=== PATIENT | female | born 1960 | race Caucasian/White ===

== ENCOUNTER 2019-07-07 09:10 | Emergency (ER) | payer BC, SELFPAY ==
[2019-07-07 09:17] VITALS: BP 123/76; PULSE 96; RESP 16; TEMP 37.5; O2SAT 96
--- NOTE | 2019-07-07 09:43 | ED.URI ---
HPI - URI/Sore Throat General Chief Complaint: Upper Respiratory Infection Stated Complaint: COUGH/FEVER/RUNNY NOSE History of Present Illness HPI Narrative: This is a 59-year-old female that started feeling sick on Wednesday states she is having body aches and fever not feeling well patient is worried because she needs to have cancer surgery next week and think she has the flu somebody at her job was positive for influenza B. Patient states she does not have any body aches no heart palpitations just feels horrible Related Data Home Medications Medication Instructions Recorded Confirmed levothyroxine 07/07/19 Allergies Allergy/AdvReac Type Severity Reaction Status Date / Time lactose AdvReac Unknown INTOLERANCE Verified 03/02/18 16:22 Review of Systems Review of Systems: Narrative: CONSTITUTIONAL: Reports fever, chills, or sweats. EYES: Denies visual changes, redness, or discharge. ENT: Reports rhinorrhea, congestion, sore throat, or otalgia. CARDIOVASCULAR:Denies chest pain, palpitations, or edema. RESPIRATORY: Reports cough or dyspnea. GASTROINTESTINAL: Denies abdominal pain, nausea, vomiting, or diarrhea. GENITOURINARY: Denies dysuria or hematuria. SKIN:[Denies rash or itching. MUSCULOSKELETAL:Denies back pain, joint pain, or myalgia. NEUROLOGIC: Denies headache, numbness, or weakness. PSYCHIATRIC:Denies anxiety or depression PMFSH Family History Family History (Updated 06/09/17 @ 10:20 by DOCTOR UNKNOWN) Mother Family history of malignant neoplasm Other Asthma Social History Social History Smoking status: Current every day smoker Alcohol intake: current Comments At time as signature, I have reviewed and agree with nursing past medical, social, surgical and family history. Please see nursing chart for further information. There is no relevant family history pertinent to the presenting complaint. Exam Narrative: Exam Narrative: GENERAL:Well-appearing, well-nourished, and in no acute distress. Body aches malaise and fatigue HEAD:Normocephalic, atraumatic. EYES: PERRLA and EOMI. ENT: Nares clear, no rhinorrhea or epistaxis. Mucous membranes moist. NECK: Supple. CHEST: Clear to auscultation. No respiratory distress. HEART: Regular rate and rhythm. No murmur heard. Normal peripheral pulses. ABDOMEN: Soft, nontender, nondistended, normal active bowel sounds. EXTREMITIES: Normal range of motion. No edema. SKIN: Warm, dry, no rash. NEURO: No focal deficits. Alert and oriented x3. Course Vital Signs Vital signs: Vital Signs Temperature 99.5 F 07/07/19 09:17 Pulse Rate 96 07/07/19 09:17 Respiratory Rate 16 07/07/19 09:17 Blood Pressure 123/76 07/07/19 09:17 Pulse Oximetry 96 07/07/19 09:17 Temperature 99.5 F 07/07/19 09:17 Pulse Rate 96 07/07/19 09:17 Respiratory Rate 16 07/07/19 09:17 Blood Pressure 123/76 07/07/19 09:17 Pulse Oximetry 96 07/07/19 09:17 Discharge Plan Discharge Clinical Impression: Influenza Patient Disposition: Home, Self-Care Condition: Stable Instructions: Antibiotic Form, Influenza (ED) Additional Instructions: Viral illness may last between 7-12days; antibiotic is NOT recommended at this time. Recommend antihistamine such as Benadryl at night time and Claritin/Zyrtec/Laurel during the day Also, recommend symptomatic treatment includes: rest, fluids, and increase humidity of the air at home. Recommend Acetaminophen or nonsteroidal anti-inflammatory agents (NSAIDs) as directed in the bottle to reduce fever and/pain/headache. Avoid smoking/second-hand smoke. Limit visits to areas with large crowds. Please schedule a follow-up visit with your personal physician for further evaluation and treatment within 3-5days. Including recheck and discussion of your blood pressure. If your symptoms persist, change or worsen significantly before you can contact your personal physician then please, without delay, go to the [facility]
== END 2019-07-07 09:59 | disposition home or self-care (01) ==
PROVIDERS: Emergency Provider Nurse Practitioner Family
DX: J11.1 Influenza due to unidentified influenza virus with other respiratory manifestations (principal); F17.200 Nicotine dependence, unspecified, uncomplicated; E03.9 Hypothyroidism, unspecified; C50.919 Malignant neoplasm of unspecified site of unspecified female breast
CPT/HCPCS: 87804; 99212; G0463

== ENCOUNTER 2021-01-23 18:29 | Emergency (ER) | payer BC, SELFPAY ==
[2021-01-23 18:47] VITALS: BP 119/65; PULSE 78; RESP 16; TEMP 36.6; O2SAT 100
--- NOTE | 2021-01-23 18:56 | ED.EAR ---
HPI - Ear Problem General Chief complaint: Ear Stated complaint: ear pain Time Seen by Provider: 01/23/21 18:56 Source: patient Mode of arrival: ambulatory History of Present Illness HPI Narrative: Liz Hathaway is a 60 yo female with a PMH of hypothyroid, breast cancer, [facility] pain in the left ear this getting worse after sleeping with ear buds in 2 days ago; states it is the pain is radiating into her jaw Related Data Home Medications Medication Instructions Recorded Confirmed levothyroxine 07/07/19 Emergen-C Vitamin D-Calcium 01/23/21 01/23/21 letrozole mg 01/23/21 Allergies Allergy/AdvReac Type Severity Reaction Status Date / Time nickel Allergy Other Verified 01/23/21 18:46 lactose AdvReac Unknown INTOLERANCE Verified 01/23/21 18:46 Review of Systems Review of Systems: CONSTITUTIONAL: Denies fever, chills, sweats. EYES: Denies visual changes, redness, discharge. ENT: Denies rhinorrhea, congestion, sore throat, left otalgia. CARDIOVASCULAR: Denies chest pain, palpitations, edema. RESPIRATORY: Denies dyspnea, wheezing, cough GASTROINTESTINAL: Denies abdominal pain, nausea, vomiting, diarrhea. GENITOURINARY: Denies dysuria, hematuria, abnormal discharge SKIN: Denies rash or itching. NEUROLOGIC: Denies numbness, or focal weakness. PSYCHIATRIC: Denies anxiety or depression. PMFSH Past Medical History Medical History Breast cancer Hypothyroid Family History Family History Mother Family history of malignant neoplasm Other Asthma Social History Social History (Updated 01/23/21 @ 19:10 by Sofia Leos CNP) Smoking status: Former smoker Smoking end date: 04/26/18 Alcohol intake: current Comments At time of signature, I agree with nursing past medical, surgical, social and family history. There is no relevant family history pertinent to the presenting complaint. Exam Narrative: GENERAL: This is a well-nourished, well-developed patient, in mild distress. HEAD: normocephalic, atraumatic. EYES: Sclera clear/white. Vision is grossly intact. EARS: External ears normal, auditory canals clear on R but erythema and drainageon L, L TM possinle perforation. Hearing grossly intact. NOSE: External nose normal without nasal discharge, nares without redness, no rhinorrhea. THROAT: Mucous membranes moist, posterior pharynx NECK: Neck supple, non-tender CARDIOVASCULAR: Regular rate and rhythm without murmurs, gallops, or rubs. RESPIRATORY: Clear to auscultation. Breath sounds equal bilaterally. No wheezes, rales, or rhonchi. GASTROINTESTINAL: Abdomen soft, SKIN: warm, intact with no suspicious lesions or rash, good texture and turgor. NEURO: awake, alert, and oriented to person, place and time. There were no obvious focal neurologic abnormalities. Steady gait EXTREMITIES: Normal range of motion. BACK: Nontender without deformity Course Course Emergency Course: Patient slept in earbuds a few nights ago and has had increasingly worsening left ear pain Started on amoxicillin and polymyxin eardrops Vital Signs Vital signs: Vital Signs Temperature 97.8 F 01/23/21 18:47 Pulse Rate 78 01/23/21 18:47 Respiratory Rate 16 01/23/21 18:47 Blood Pressure 119/65 01/23/21 18:47 Pulse Oximetry 100 01/23/21 18:47 Temperature 97.8 F 01/23/21 18:47 Pulse Rate 78 01/23/21 18:47 Respiratory Rate 16 01/23/21 18:47 Blood Pressure 119/65 01/23/21 18:47 Pulse Oximetry 100 01/23/21 18:47 Medical Decision Making Differential Diagnosis Differential Diagnosis: Otitis media versus otitis externa versus eardrum perforation Vital Signs Vital Signs: Vital Signs Temperature 97.8 F 01/23/21 18:47 Pulse Rate 78 01/23/21 18:47 Respiratory Rate 16 01/23/21 18:47 Blood Pressure 119/65 01/23/21 18:47 Pulse Oximetry 100 01/23/21 18:47
== END 2021-01-23 19:18 | disposition home or self-care (01) ==
PROVIDERS: Emergency Provider Nurse Practitioner
DX: H66.002 Acute suppurative otitis media without spontaneous rupture of ear drum, left ear (principal); E03.9 Hypothyroidism, unspecified; Z87.891 Personal history of nicotine dependence; Z85.3 Personal history of malignant neoplasm of breast
CPT/HCPCS: 99213; G0463